=== PATIENT | female | born 1995 | race Two or more races ===

== ENCOUNTER 2017-05-25 17:15 | Observation (INO) | payer BC, MEDICAID ==
[~2017-05-25] VITALS: Ht 162.6 cm; Wt 97.5 kg
[2017-05-25 18:24] LABS: Basophils # (auto) 0 uL; Eosinophils # (auto) 0 uL; Hemoglobin 12.1 g/dL (12.2-16.2); Lymphocytes # (auto) 1.6 uL; Monocytes # (auto) 0.8 uL
[2017-05-25 18:26] LABS: Basophils % (auto) 0.3 % (0.0-2.0); Eosinophils % (auto) 0.3 % (0.0-7.0); Hematocrit 36.7 % (36.0-46.0); Lymphocytes % (auto) 16.1 % (10.0-50.0); Mean Corpuscular Hemoglobin 26.6 pg (28.0-32.0); Mean Corpuscular Hgb Conc. 33.1 g/dL (32.0-36.0); Mean Corpuscular Volume 80.5 fL (80.0-100.0); Monocytes % (auto) 8.2 % (0.0-12.0); Neutrophils # (auto) 7.6 uL; Neutrophils % (auto) 75.1 % (37.0-80.0); Nucleated Red Blood Cells % 0.2 %; Platelet Count (auto) 225 10^3/uL (140-450); Red Blood Cells 4.55 10^6/uL (4.0-5.20); White Blood Cell 10.1 10^3/uL (4.4-10.8)
[2017-05-25 18:34] LABS: INR 0.92 (0.9-1.15); Partial Thromboplastin Time 27.4 sec (22.64-33.71)
[2017-05-25 18:39] LABS: Albumin 2.6 g/dL (3.4-5.0); BUN/Creatinine Ratio 15.2; Calcium 8.4 mg/dL (8.5-10.1); Potassium 3.9 mmol/L (3.5-5.1)
[2017-05-25 18:41] LABS: Bilirubin, Total 0.3 mg/dL (0.2-1.0); Total Protein 6.7 g/dL (6.4-8.2)
[2017-05-25 19:02] LABS: Urine Bacteria FEW /hpf (None Seen); Urine Blood Negative /uL (Negative); Urine Mucus FEW (None Seen); Urine Specific Gravity 1.011 (1.001-1.035); Urine WBC 20 /hpf (0 - 5)
[2017-05-25 19:19] LABS: Alcohol, Urine < 3.0 mg/dL (0-5); Amphetamine Screen, Urine NEGATIVE (NEGATIVE); Barbiturate Scree,Urine NEGATIVE (NEGATIVE); Benzodiazephine Screen, Urine NEGATIVE (NEGATIVE); Cannabinoid Screen, Urine NEGATIVE (NEGATIVE); Cocaine Screen, Urine NEGATIVE (NEGATIVE); Opiate Scree,Urine NEGATIVE (NEGATIVE); Phencyclidine Screen, Urine NEGATIVE (NEGATIVE)
[2017-05-25] MEDS ORDERED: PREN-153 OR (21:24)
== END 2017-05-25 20:18 | disposition home or self-care (01) | DRG 566 ==
LOC: LDRP 17:15
PROVIDERS: ADMIT Obstetrics & Gynecology; ATTEND Obstetrics & Gynecology
DX: O42.92 Full-term premature rupture of membranes, unspecified as to length of time between rupture and onset of labor (principal); Z3A.37 37 weeks gestation of pregnancy
CPT/HCPCS: 36415; 59025; 76805; 76818; 80053; 80307; 81001; 81002; 85025; 85610; 85730; 86850; 86900; 86901; G0378; 96365; 96366

== ENCOUNTER 2017-05-26 09:15 | Observation (INO) | payer BC, MEDICAID ==
[~2017-05-26 09:15] MED LIST: PREN-153 OR
== END 2017-05-26 11:30 | disposition home or self-care (01) | DRG 566 ==
LOC: LDRP 09:15
PROVIDERS: ADMIT Specialist; ATTEND Specialist
DX: O26.893 Other specified pregnancy related conditions, third trimester (principal); Z3A.39 39 weeks gestation of pregnancy
CPT/HCPCS: 59025; 76818; 81002; G0378

== ENCOUNTER 2017-05-28 00:35 | Inpatient (IN) | payer MEDICAID ==
[~2017-05-28] VITALS: Ht 162.6 cm; Wt 93.0 kg
[2017-05-28 03:33] LABS: Urine Bacteria FEW /hpf (None Seen); Urine Blood 2+ /uL (Negative); Urine Mucus FEW (None Seen); Urine Specific Gravity 1.014 (1.001-1.035); Urine WBC 15 /hpf (0 - 5)
[2017-05-28 03:45] LABS: Alcohol, Urine < 3.0 mg/dL (0-5); Amphetamine Screen, Urine NEGATIVE (NEGATIVE); Barbiturate Scree,Urine NEGATIVE (NEGATIVE); Benzodiazephine Screen, Urine NEGATIVE (NEGATIVE); Cannabinoid Screen, Urine NEGATIVE (NEGATIVE); Cocaine Screen, Urine NEGATIVE (NEGATIVE); Opiate Scree,Urine NEGATIVE (NEGATIVE); Phencyclidine Screen, Urine NEGATIVE (NEGATIVE)
[2017-05-28] MEDS ORDERED: LACT. RINGERS/OXYTOCIN 20UNITS 1,000 ML IV SCH (04:48)
[2017-05-28] MEDS ORDERED: NALBUPHINE HCL 10 MG/1ml INJECTION IV PRN (05:00)
[2017-05-28] MEDS ORDERED: LIDOCAINE 2%HCL (LOCAL ANESTH.) INJ 20ML MDV IJ PRN (05:00)
[2017-05-28] MEDS ORDERED: WITCH HAZEL-GLYCERIN PAD TOP PRN (05:00)
[2017-05-28] MEDS ORDERED: DERMOPLAST 60ML BOTTLE TOP PRN (05:00)
[2017-05-28] MEDS ORDERED: PHISODERM TOP SOLN 240ML BTL TOP PRN (05:00)
[2017-05-28] MEDS ORDERED: METHYLERGONOVINE MALEATE 0.2 MG/ML AMP IM PRN (05:00)
[2017-05-28] MEDS: LACTATED RINGER'S 1,000 ML IV SCH ×2 (05:45→12:20)
[2017-05-28] MEDS ORDERED: PROMETHAZINE HCL 25 MG/ML 1ML IV PRN (06:00)
[2017-05-28 08:10] LABS: Eosinophils # (auto) 0 uL; Eosinophils % (auto) 0.2 % (0.0-7.0); Hemoglobin 12.4 g/dL (12.2-16.2); Mean Corpuscular Hgb Conc. 33.2 g/dL (32.0-36.0); White Blood Cell 13.7 10^3/uL (4.4-10.8)
[2017-05-28 08:12] LABS: Basophils # (auto) 0.1 uL; Basophils % (auto) 0.9 % (0.0-2.0); Hematocrit 37.4 % (36.0-46.0); Lymphocytes # (auto) 1.2 uL; Lymphocytes % (auto) 8.5 % (10.0-50.0); Mean Corpuscular Hemoglobin 26.3 pg (28.0-32.0); Mean Corpuscular Volume 79.3 fL (80.0-100.0); Monocytes # (auto) 0.7 uL; Monocytes % (auto) 4.8 % (0.0-12.0); Neutrophils # (auto) 11.8 uL; Neutrophils % (auto) 85.6 % (37.0-80.0); Platelet Count (auto) 218 10^3/uL (140-450); Red Blood Cells 4.72 10^6/uL (4.0-5.20)
[2017-05-28 08:24] LABS: INR 0.92 (0.9-1.15); Partial Thromboplastin Time 29.4 sec (22.64-33.71)
[2017-05-28 08:41] LABS: Albumin 2.9 g/dL (3.4-5.0); Calcium 8.8 mg/dL (8.5-10.1); Potassium 3.6 mmol/L (3.5-5.1)
[2017-05-28 08:43] LABS: Bilirubin, Total 0.5 mg/dL (0.2-1.0); Total Protein 7.3 g/dL (6.4-8.2)
[2017-05-28] MEDS ORDERED: ACETAMINOPHEN/CODEINE#3 (300/30mg) TAB PO PRN ×2 (11:00→19:00)
[2017-05-28] MEDS ORDERED: IBUPROFEN 600 MG TAB PO PRN ×2 (11:00→19:00)
[2017-05-28] MEDS: DOCUSATE CALCIUM 240 MG CAP PO SCH (12:10)
[2017-05-28] MEDS: ceFAZolin 1GM/50ML 50 ML IV SCH ×2 (14:20→22:06)
[2017-05-28 15:30] VITALS: BP 107/57
[2017-05-28] MEDS ORDERED: MEASLES, MUMPS & RUBELLA VAC(MMRII) 0.5ML SC ONE (18:00)
[2017-05-28] MEDS ORDERED: INFLUENZA QUAD 2017-2018 0.5 ML SYRG IM ONE (18:00)
[2017-05-28] MEDS ORDERED: TETANUS-DIPTH-ACEL PERTUSSIS 0.5ML SYRG IM ONE (18:00)
[2017-05-28] MEDS ORDERED: IBUPROFEN 600 MG TAB PO ONE (18:27)
[2017-05-28 18:45] VITALS: BP 114/67
[2017-05-28 22:39] VITALS: BP 103/54
[2017-05-29 02:36] VITALS: BP 116/55
[2017-05-29] MEDS: ceFAZolin 1GM/50ML 50 ML IV SCH (05:35)
[2017-05-29] MEDS ORDERED: AMMONIA 0.33 ML INHALANT IN ONE (06:35)
[2017-05-29 06:43] VITALS: BP 111/55
[2017-05-29] MEDS: DOCUSATE CALCIUM 240 MG CAP PO SCH (09:39)
[2017-05-29 11:08] VITALS: BP 114/56
[2017-05-30 04:12] LABS: RPR Non Reactive (Non Reactive)
== END 2017-05-29 13:00 | disposition home or self-care (01) | DRG 542 ==
LOC: OBSVTOIN 00:35 → LDRP 00:35
PROVIDERS: ADMIT Specialist; ATTEND Specialist
PROC: 10D07Z6 Extraction of Products of Conception, Vacuum, Via Natural or Artificial Opening (ICD-10-PCS; principal; 2017-05-28)
PROC: 0W8NXZZ Division of Female Perineum, External Approach (ICD-10-PCS; 2017-05-28)
PROC: 0DQR0ZZ Repair Anal Sphincter, Open Approach (ICD-10-PCS; 2017-05-28)
DX: O42.02 Full-term premature rupture of membranes, onset of labor within 24 hours of rupture (principal); O70.20 Third degree perineal laceration during delivery, unspecified; O62.1 Secondary uterine inertia; Z23 Encounter for immunization; Z37.0 Single live birth; Z3A.39 39 weeks gestation of pregnancy
CPT/HCPCS: 36415; 59025; 80053; 80307; 81001; 81002; 85025; 85610; 85730; 86592; 86850; 86900; 86901; 90471; 90472; 90715; 96372; J0690; J2590

== ENCOUNTER 2019-12-02 07:35 | Inpatient (IN) | payer MEDICAID ==
[~2019-12-02] VITALS: Ht 162.6 cm; Wt 108.9 kg
[2019-12-02] MEDS ORDERED: LACT. RINGERS/OXYTOCIN 20UNITS 1,000 ML IV SCH (08:18)
[2019-12-02] MEDS ORDERED: LACTATED RINGER'S 1,000 ML IV SCH (08:18)
[2019-12-02] MEDS ORDERED: METHYLERGONOVINE MALEATE 0.2 MG/ML AMP IM PRN (08:30)
[2019-12-02] MEDS ORDERED: PHISODERM TOP SOLN 240ML BTL TOP PRN (08:30)
[2019-12-02] MEDS ORDERED: LIDOCAINE 2%HCL (LOCAL ANESTH.) INJ 20ML MDV IJ PRN (08:30)
[2019-12-02 09:04] LABS: Basophils # (auto) 0 10 ^3/uL (0-0.2); Basophils % (auto) 0.4 % (0.0-2.0); Eosinophils # (auto) 0.1 10 ^3/uL (0-0.8); Lymphocytes # (auto) 1.6 10 ^3/uL (0.4-5.4); Mean Corpuscular Volume 80.9 fL (80.0-100.0); Red Cell Distribution Width 14.6 % (11.8-14.3)
[2019-12-02 09:05] LABS: Eosinophils % (auto) 0.9 % (0.0-7.0); Hematocrit 39.8 % (36.0-46.0); Lymphocytes % (auto) 18.9 % (10.0-50.0); Mean Corpuscular Hemoglobin 26.5 pg (28.0-32.0); Mean Corpuscular Hgb Conc. 32.8 g/dL (32.0-36.0); Monocytes # (auto) 0.7 10 ^3/uL (0-1.3); Monocytes % (auto) 7.9 % (0.0-12.0); Neutrophils # (auto) 6.1 10 ^3/uL (1.6-8.6); Neutrophils % (auto) 71.9 % (37.0-80.0); Nucleated Red Blood Cells % 0.1 %; Platelet Count (auto) 200 10^3/uL (140-450); Red Blood Cells 4.92 10^6/uL (4.0-5.20); White Blood Cell 8.4 10^3/uL (4.4-10.8)
[2019-12-02 09:21] LABS: INR 0.93 (0.9-1.15); Partial Thromboplastin Time 27.9 sec (23.0-31.2)
[2019-12-02 09:28] LABS: Albumin 2.7 g/dL (3.4-5.0); Calcium 8.8 mg/dL (8.5-10.1); Potassium 3.8 mmol/L (3.5-5.1)
[2019-12-02 09:31] LABS: BUN/Creatinine Ratio 17.5; Bilirubin, Total 0.3 mg/dL (0.2-1.0); Total Protein 6.7 g/dL (6.4-8.2)
[2019-12-02] MEDS: DERMOPLAST 60ML BOTTLE TOP PRN (10:37)
[2019-12-02] MEDS: WITCH HAZEL-GLYCERIN PAD TOP PRN (10:37)
[2019-12-02] MEDS ORDERED: LACT. RINGERS/OXYTOCIN 20UNITS 1,000 ML IV ONE (10:39)
[2019-12-02] MEDS ORDERED: ACETAMINOPHEN 325 MG TAB PO PRN (10:45)
[2019-12-02 11:00] VITALS: BP 126/72
[2019-12-02 11:15] VITALS: BP 115/56
[2019-12-02 14:10] VITALS: BP 104/58
[2019-12-02 18:30] VITALS: BP 92/55
[2019-12-02] MEDS: IBUPROFEN 600 MG TAB PO PRN (19:57)
[2019-12-02 23:00] VITALS: BP 98/64
[2019-12-03 03:00] VITALS: BP 90/54
[2019-12-03] MEDS: IBUPROFEN 600 MG TAB PO PRN (03:40)
[2019-12-03 04:08] LABS: RPR Non Reactive (Non Reactive)
[2019-12-03 06:41] VITALS: BP 97/48
[2019-12-03 10:50] VITALS: BP 99/50
[2019-12-03] MEDS: DERMOPLAST 60ML BOTTLE TOP PRN (11:22)
[2019-12-03] MEDS: WITCH HAZEL-GLYCERIN PAD TOP PRN (11:22)
== END 2019-12-03 11:50 | disposition home or self-care (01) | DRG 560 ==
LOC: LDRP 07:35 → OBSVTOIN 08:10 → LDRP 10:38
PROVIDERS: ADMIT Specialist; ATTEND Specialist
PROC: 10E0XZZ Delivery of Products of Conception, External Approach (ICD-10-PCS; principal; 2019-12-02)
PROC: 0KQM0ZZ Repair Perineum Muscle, Open Approach (ICD-10-PCS; 2019-12-02)
DX: O70.1 Second degree perineal laceration during delivery (principal); Z3A.39 39 weeks gestation of pregnancy; Z37.0 Single live birth; Z20.828 Contact with and (suspected) exposure to other viral communicable diseases
CPT/HCPCS: 36415; 59025; 59409; 80053; 81002; 85025; 85610; 85730; 86592; 86850; 86900; 86901; 96360; 96361; 96365; G0378; J2590